=== PATIENT | female | born 1945 | race Caucasian/White ===

== ENCOUNTER 2018-04-03 05:49 | Day surgery (SDC) | payer MEDICARE, OTHER, SELFPAY ==
[2018-04-03] VITALS (7 sets, daily range): BP systolic 84–134; BP diastolic 47–78; PULSE 64–73; RESP 16; TEMP 36.1–36.3; O2SAT 92–100
[2018-04-03 07:05] LABS: Bedside Glucose 113 mg/dL (70-110)
--- NOTE | 2018-04-03 07:30 | CALC_PTH ---
PATIENT: JOSSIE MORA LOC: [facility] [place] U#:[id number] AGE/SX: 73/F ROOM: RE04/03/[address]: Dr. Yaneth Ramires MD : 1945 BED: DIS: 04/03/2018 SPEC #: [id number] RECD: 04/03/18 10:27 STATUS: COSME ELI #: [id number] ALEKSEY: 04/03/18 07:[address]: Yaneth Ramires DEPT: SURGICAL PATHOLOGY RECD BY: Brandyn Gandhi ENTERED: 04/03/18 12:16 SP TYPE: Calculi OTHR DR: Out of [facility] Doctor Tissues: CALCULI Procedures: Surgery Specimen Level I HEADER OPERATION: Cystoscopy, bladder stone extraction PRE-OP DIAGNOSIS: Bladder calculi TISSUE SUBMITTED: Bladder calculi for analysis GROSS DIAGNOSIS Fragments of stone, clinically bladder calculi for analysis. BALJIT:[email or web address] 04/03/18 COMMENT The calculus is submitted in its entirety for chemical stone analysis. The results from this study will be reported separately. GROSS DESCRIPTION Received in fixative is one container labeled with the patient's name and designated bladder calculi for analysis. The specimen consists of three fragments of rainey-brown stone. The smaller two fragments each measure 0.1 cm in greatest dimension and the larger stone measures 0.5 x 0.5 x 0.4 cm. The entire specimen is submitted for stone analysis. / BALJIT:charlie 04/03/18 CPT: 41452
[2018-04-03] MEDS: Cefazolin 2 GM in 0.9% Normal Saline 100 ML IV (07:45)
[2018-04-03] MEDS: Lubricating Jelly 60 GM Tube 30 GM TOPICAL (07:50)
--- NOTE | 2018-04-03 08:14 | PCM.IMDPSTOP ---
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 two smaller pieces removed as well. Estimated Blood Loss: 1cc Specimen's removed: bladder stone Type of Anesthesia:: General - Admit VTE Documentation VTE Present on Admission: Yes VTE Mechan Device Prophylaxis: SCD's VTE Pharm Prophylaxis ordered?: No Reason prophylaxis not ordered:: Treatment Not Indicated
--- NOTE | 2018-04-03 08:16 | PCM.OPRPT ---
Problem List (1) Bladder calculus Status: Acute Report of Operation Date of Procedure: 04/03/18 Pre-Operative Diagnosis: bladder calculus Post-Operative Diagnosis: same Surgery/Procedure Performed:: cystoscopy removal bladder calculus Description of Surgical Findings:: one spiculated bladder calculus removed without difficulty. two smaller pieces removed as well. 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 On evaluation in the office she was found to have a bladder stone proximally 1 cm in size. After discussing all the risks benefits and alternatives, she agreed to proceed with removal of her bladder stone under anesthesia. Patient was taken to the operating room and placed on operating room table. Anesthesia monitored the head, neck, airway, IV, vital signs throughout the case. Once anesthesia was appropriately administered the patient was prepped and draped in usual sterile fashion. A cystourethroscopy was once again performed. The only abnormality identified was the stone as seen in the office. The stone was able to be grasped with forceps and removed in one piece. The 2 smaller stones seen were removed without difficulty as well. The patient's bladder was then emptied. She tolerated the procedure well without complication. She was awakened and taken to the recovery room in good condition. - Complications none - Admit VTE Documentation VTE Present on Admission: Yes VTE Mechan Device Prophylaxis: SCD's VTE Pharm Prophylaxis ordered?: No Reason prophylaxis not ordered:: Treatment Not Indicated
--- NOTE | 2018-04-03 08:21 | DCINST_ITS ---
Discharge Diet: No Restrictions Discharge Activity: Return to Normal Activity, May Shower, May Take a Tub Bath May resume sexual activity in: No Restrictions Call your doctor if you observe: Fever of 101 or Higher, Inability to urinate, Inability to have a bowel movement, Shortness of breath, Chest pain, Calf discomfort Allergies/Adverse Reactions: Allergies No Known Allergies Allergy (Verified 04/03/18 06:27) Medications to take at Discharge Aspirin [Aspirin EC] 325 mg PO DAILY 03/30/18 Atenolol [Tenormin (beta cy)] 100 mg PO DAILY 03/30/18 Atorvastatin Calcium [Lipitor] 40 mg PO QHS 03/30/18 Cholecalciferol (Vitamin D3) [Vitamin D3] 4,000 unit PO DAILY 03/30/18 Glipizide [Glucotrol] 10 mg PO BID 03/30/18 Liraglutide [Victoza] 1.8 mg SQ DAILY 03/30/18 Lisinopril [Zestril] 40 mg PO QHS 03/30/18 Metformin HCl [Metformin HCl ER] 1,000 mg PO BID 03/30/18 Primary Care Physician: Michelle Gonzalez,Out of [Primary Care Provider] - Test Results: Test results from this visit will be discussed in further detail at your follow- up appointment, if applicable. Please Follow Up With: Yaneth Ramires MD When: 2-4 weeks, call office for appt Proposed Discharge Date: 04/03/18
[2018-04-03 08:25] LABS: Bedside Glucose 106 mg/dL (70-110)
[2018-04-13 20:08] LABS: Ca Oxalate, Monohydrate 90 % (.); Calcium Phosphate 10 % (.)
== END 2018-04-03 10:10 | disposition home or self-care (01) ==
LOC: SDC 05:51 → AC 05:53
PROVIDERS: Visit Provider Urology
PROC: (CPT 52353; principal; 2018-04-03 07:20)
DX: N21.0 Calculus in bladder (principal); E78.00 Pure hypercholesterolemia, unspecified; E11.9 Type 2 diabetes mellitus without complications; R33.9 Retention of urine, unspecified; Z79.899 Other long term (current) drug therapy; Z79.84 Long term (current) use of oral hypoglycemic drugs; I10 Essential (primary) hypertension; Z87.891 Personal history of nicotine dependence
CPT/HCPCS: 00910; 52310; 82360; 82962; 88300; J7120